=== PATIENT | female | born 1950 | race Caucasian/White ===

== ENCOUNTER → 2016-09-30 | Outpatient (CLI) | payer BC, MEDICARE ==
--- NOTE | 2016-09-30 10:44 | REP ---
LEFT BREAST MAMMOGRAM: CLINICAL HISTORY: History of breast cancer at age 55. Family history of breast cancer in sister. MLO and CC views of the left breast are performed and compared to multiple prior exams, most recent of which is 09/29/2015. Breast parenchyma is heterogeneously dense. This limits the sensitivity of the mammogram. I see no definite mass or clustered microcalcifications. IMPRESSION: ACR 2 benign. No definite mass or clustered microcalcifications in the left breast. Patient is status post right mastectomy for breast cancer. BI-RADS/ACR category 2 mammogram. Benign finding(s). Routine annual screening mammography (for women over age 40). Given the dense breast parenchyma and history of breast cancer, I would recommend MRI of the left breast to rule out occult lesion. Signed by Song Bae MD 09/30/2016 04:42 P
== END ==
LOC: M RAD 09:32
PROVIDERS: ATTEND Internal Medicine Medical Oncology
DX: Z12.31 Encounter for screening mammogram for malignant neoplasm of breast (principal); Z85.3 Personal history of malignant neoplasm of breast

== ENCOUNTER → 2016-10-26 | Outpatient (REF) | payer MEDICARE | LOC: M SFHCPLAZ 18:28 | PROVIDERS: ATTEND Dermatology | DX: D48.5 Neoplasm of uncertain behavior of skin (principal) ==

== ENCOUNTER → 2017-10-13 | Outpatient (CLI) | payer MEDICARE | LOC: M RAD 10:08 | DX: Z12.31 Encounter for screening mammogram for malignant neoplasm of breast (principal); Z85.3 Personal history of malignant neoplasm of breast; Z90.11 Acquired absence of right breast and nipple | CPT/HCPCS: 77067 ==

== ENCOUNTER → 2018-07-23 | Outpatient (REF) | payer MEDICARE, SELFPAY | LOC: M LAB REF 14:14 | PROVIDERS: ATTEND Physician Assistant | DX: R30.0 Dysuria (principal) ==

== ENCOUNTER → 2018-10-16 | Outpatient (CLI) | payer MEDICARE ==
--- NOTE | 2018-10-16 11:54 | REP ---
UNILATERAL MAMMOGRAM LEFT BREAST: HISTORY: Right breast cancer and mastectomy. FAMILY HISTORY: Mother with breast cancer at age 88 and sister with breast cancer at age 45. COMPARISON: 10/13/2017 as well as multiple other prior exams. Mammogram left breast performed in the MLO and CC projections with 3D tomosynthesis. Moderately dense heterogeneous fibroglandular tissue is seen. I see no new mass or architectural distortion. No clustered microcalcifications are seen. IMPRESSION: ACR 1 negative mammogram left breast in this patient status post right mastectomy. Suggest followup mammogram in 1 year. BIRADS 1: BI-RADS/ACR category 1 mammogram. Negative Mammogram. This mammogram was interpreted with the aid of an FDA-approved computer-aided detection system. A. Negative x-ray reports should not delay biopsy if a dominant or clinically suspicious mass is present. B. Four to eight percent of cancers are not identified by x-ray. C. Adenosis and dense breasts may obscure an underlying neoplasm. The patient states she had a clinical breast exam in 12/2017. The patient letter being requested is M1. Electronically Signed by Song Bae MD 10/16/2018 02:47 P
== END ==
LOC: M RAD 10:08
PROVIDERS: ATTEND Nurse Practitioner Family
DX: Z12.31 Encounter for screening mammogram for malignant neoplasm of breast (principal); Z85.3 Personal history of malignant neoplasm of breast; Z90.11 Acquired absence of right breast and nipple

== ENCOUNTER → 2019-06-08 | Outpatient (REF) | payer MEDICARE ==
[~2019-06-08] MED LIST: ALPR0.25 PO; AMIT25TA PO; ATEN25TA PO; ESCI10TA2 PO; OMEP-221 PO; SIMV40TA2 PO; VITA500045 PO
== END ==
LOC: M LAB REF 12:17
PROVIDERS: ATTEND Nurse Practitioner Family
DX: R30.0 Dysuria (principal)

== ENCOUNTER → 2019-08-04 | Outpatient (REF) | payer MEDICARE ==
[~2019-08-04] MED LIST changes: -SIMV40TA2 PO; +SIMV40TA20 PO
== END ==
LOC: M LAB REF 17:44
PROVIDERS: ATTEND Physician Assistant
DX: R30.0 Dysuria (principal)

== ENCOUNTER → 2019-12-11 | Outpatient (REF) | payer MEDICARE | LOC: M WUC 15:52 | PROVIDERS: ATTEND Nurse Practitioner Family | DX: R30.0 Dysuria (principal) ==

== ENCOUNTER → 2019-12-11 | Outpatient (CLI) | payer MEDICARE ==
--- NOTE | 2019-12-11 10:34 | REPMRS ---
Patient History The patient states she had a clinical breast exam in December 2018. Patient has history of cancer in the right breast at age 55. Family history of breast cancer at age 88 in mother, breast cancer at age 45 in sister, unknown cancer at age 40 in father. Took tamoxifen for 5 years. Digital Woman Screen Mammo: December 11, 2019 - Exam #: [id number] Bilateral CC and MLO view(s) were taken. Technologist: Johanny Oscar, Technologist Prior study comparison: October 16, 2018, bilateral digital mammo screening bilat, performed at [facility]. October 13, 2017, bilateral digital mammo screening bilat, performed at [facility]. September 30, 2016, bilateral digital mammo screening bilat, performed at [facility]. FINDINGS: The breast tissue is heterogeneously dense. This may lower the sensitivity of mammography. The Volpara volumetric breast density category is: C. There has been no change in the appearance of the left breast parenchyma in the interval since the prior examination. No mass, architectural distortion, or microcalcific grouping has developed. No suspicious finding. 3-D tomosynthesis shows no additional findings. Assessment: BI-RADS/ACR category 2 mammogram. Benign Findings. Recommendation Routine screening mammogram of the left breast in 1 year. This mammogram was interpreted with the aid of an FDA-approved computer-aided dectection system. Electronically Signed By: Diego Reveles MD 12/11/19 [id number]
== END ==
LOC: M WHC 09:08
PROVIDERS: ATTEND Nurse Practitioner Family
DX: Z12.31 Encounter for screening mammogram for malignant neoplasm of breast (principal); Z85.3 Personal history of malignant neoplasm of breast

== ENCOUNTER → 2020-06-03 | Outpatient (REF) | payer MEDICARE | LOC: M WUC 14:55 | PROVIDERS: ATTEND Physician Assistant | DX: R30.0 Dysuria (principal) ==

== ENCOUNTER → 2020-10-10 | Outpatient (REF) | payer MEDICARE ==
[~2020-10-10] MED LIST changes: -AMIT25TA PO; +AMIT25TA17 PO; +ESCI10TA16 PO; -ESCI10TA2 PO
== END ==
LOC: M WUC 12:25
PROVIDERS: ATTEND Physician Assistant
DX: R30.0 Dysuria (principal)

== ENCOUNTER → 2020-12-11 | Outpatient (CLI) | payer MEDICARE ==
--- NOTE | 2020-12-11 11:21 | REPMRS ---
Patient History The patient states she has not had a clinical breast exam in over a year. Family history of breast cancer at age 88 in mother, breast cancer at age 45 in sister, unknown cancer at age 40 in father. Took tamoxifen for 5 years. Patient states no breast complaints today. Patient has signed MRS History Sheet. Digital Woman Screen Mammo: December 11, 2020 - Exam #: [id number] Bilateral CC and MLO view(s) were taken. Technologist: Jami Bazan Technologist Prior study comparison: December 11, 2019, bilateral digital woman screen mammo performed at [facility] and [facility]. October 16, 2018, bilateral digital mammo screening bilat, performed at [facility]. October 13, 2017, bilateral digital mammo screening bilat, performed at [facility]. FINDINGS: The breast tissue is heterogeneously dense. This may lower the sensitivity of mammography. There has been no change in the appearance of the left breast parenchyma in the interval since the prior examination. No mass, architectural distortion, or microcalcific grouping has developed. No suspicious finding. 3-D tomosynthesis shows no additional findings. Assessment: BI-RADS/ACR category 2 mammogram. Benign Findings. Recommendation Routine screening mammogram of the left breast in 1 year. This mammogram was interpreted with the aid of an FDA-approved computer-aided dectection system. Electronically Signed By: Diego Reveles MD 12/11/20 [id number]
== END ==
LOC: M WHC 09:44
PROVIDERS: ATTEND Physician Assistant
DX: Z12.31 Encounter for screening mammogram for malignant neoplasm of breast (principal); Z85.3 Personal history of malignant neoplasm of breast; Z90.11 Acquired absence of right breast and nipple; Z80.3 Family history of malignant neoplasm of breast

== ENCOUNTER → 2021-03-23 | Outpatient (REF) | payer MEDICARE | LOC: M LAB REF 16:04 | PROVIDERS: ATTEND Physician Assistant | DX: N39.0 Urinary tract infection, site not specified (principal) ==

== ENCOUNTER → 2021-03-26 | Outpatient (CLI) | payer MEDICARE ==
--- NOTE | 2021-03-26 10:35 | DEXAMM ---
INDICATION: OTH DISRD OF BONE DENSITY AND STRUCTURE, UNSPECIFIED SITE. COMPARISON: Comparison study March 20, 2019. TECHNIQUE: Bone density was measured using dual-energy x-ray absorptionmetry (DEXA). FINDINGS: AP SPINE L1-L4 BMD 1.020 g/cm2 Young Adult T-Score -1.4 Age Matched Z-Score 0.2. LT FEMUR, TOTAL BMD 0.771 g/cm2 Young Adult T-Score -1.9 Age Matched Z-Score -0.4. LT NECK BMD 0.738 g/cm2 Young Adult T-Score -2.2 Age Matched Z-Score -0.5. RT FEMUR, TOTAL BMD 0.780 g/cm2 Young Adult T-Score -1.8 Age Matched Z-Score -0.4. RT NECK BMD 0.779 g/cm2 Young Adult T-Score -1.9 Age Matched Z-Score -0.2. IMPRESSION: There is low bone density of the spine. There is low bone density of the left hip. There is low bone density of the right hip. The density of the spine has decreased 3.7% since the initial exam on December 10, 2005. The density of the spine increased 1.3% since most recent exam on March 20, 2019. The density of the left hip has increased 3.1% since initial exam on January 11, 2007. The density of the left hip has decreased 0.6% since most recent exam on March 20, 2019. The density of the right hip has decreased 1.1% since the initial exam on December 10, 2005. The density of the right hip has decreased 1.4% since the most recent exam on March 20, 2019. FOLLOW-UP: Recommendation for the next bone density exam: 2 years. <Electronically signed by Diego Reveles > 03/26/21 [id number]
== END ==
LOC: M WHC 09:15
PROVIDERS: ATTEND Physician Assistant
DX: M85.89 Other specified disorders of bone density and structure, multiple sites (principal)

== ENCOUNTER → 2021-05-25 | Outpatient (REF) | payer MEDICARE | LOC: M LAB REF 20:29 | PROVIDERS: ATTEND Physician Assistant | DX: N39.0 Urinary tract infection, site not specified (principal) ==

== ENCOUNTER → 2021-07-02 | Outpatient (REF) | payer MEDICARE ==
[~2021-07-02] MED LIST changes: -OMEP-221 PO; +OMEP40CA5 PO
== END ==
LOC: M WUC 12:04
PROVIDERS: ATTEND Physician Assistant
DX: N39.0 Urinary tract infection, site not specified (principal)

== ENCOUNTER → 2021-12-30 | Outpatient (CLI) | payer MEDICARE | LOC: M WHC 09:53 | PROVIDERS: ATTEND Family Medicine | DX: Z12.31 Encounter for screening mammogram for malignant neoplasm of breast (principal) ==

== ENCOUNTER → 2022-04-11 | Outpatient (CLI) | payer MEDICARE | LOC: M LABSMTC 11:17 | PROVIDERS: ATTEND Anesthesiology | DX: Z01.812 Encounter for preprocedural laboratory examination (principal); Z20.822 Contact with and (suspected) exposure to COVID-19 ==

== ENCOUNTER 2022-04-14 10:47 | Day surgery (SDC) | payer MEDICARE ==
[~2022-04-14] VITALS: Ht 167.6 cm; Wt 65.8 kg
[~2022-04-14 10:47] MED LIST changes: +NS 1,000 ML IV ONE
[2022-04-14] MEDS ORDERED: TRAZ-257 PO (11:31)
[2022-04-14] MEDS ORDERED: METOPROLOL 5 MG/5 ML VIAL As Ordered ONE (12:21)
[2022-04-14] MEDS ORDERED: LIDOCAINE 2% 100MG/5ML SDV (FOR ANES.) As Ordered ONE (12:21)
[2022-04-14] MEDS ORDERED: propofoL 200 MG/20 ML VIAL As Ordered ONE (12:22)
[2022-04-14 13:05] VITALS: BP 130/60
== END 2022-04-14 13:12 | disposition home or self-care (01) ==
LOC: M OPP 10:47
PROVIDERS: ATTEND Internal Medicine Gastroenterology
DX: Z12.11 Encounter for screening for malignant neoplasm of colon (principal); K64.0 First degree hemorrhoids; Z79.02 Long term (current) use of antithrombotics/antiplatelets; Z79.899 Other long term (current) drug therapy; Z88.2 Allergy status to sulfonamides; I10 Essential (primary) hypertension; K21.9 Gastro-esophageal reflux disease without esophagitis; F41.9 Anxiety disorder, unspecified; E78.00 Pure hypercholesterolemia, unspecified; Z92.3 Personal history of irradiation; Z85.3 Personal history of malignant neoplasm of breast; Z80.3 Family history of malignant neoplasm of breast

== ENCOUNTER → 2022-07-26 | Outpatient (REF) | payer MEDICARE ==
[~2022-07-26] MED LIST changes: -NS 1,000 ML IV ONE; +TRAZ-257 PO
== END ==
LOC: M LABWUC 19:11
PROVIDERS: ATTEND Physician Assistant
DX: R30.0 Dysuria (principal)

== ENCOUNTER → 2022-11-08 | Outpatient (REF) | payer MEDICARE | LOC: M LAB REF 12:27 | PROVIDERS: ATTEND Ophthalmology | DX: H04.42 Chronic lacrimal canaliculitis (principal) ==

== ENCOUNTER → 2023-01-04 | Outpatient (REF) | payer MEDICARE | LOC: M LAB REF 16:15 | PROVIDERS: ATTEND Ophthalmology | DX: H04.562 Stenosis of left lacrimal punctum (principal) ==

== ENCOUNTER → 2023-01-05 | Outpatient (CLI) | payer MEDICARE | LOC: M WHC 09:44 | PROVIDERS: ATTEND Family Medicine | DX: Z12.31 Encounter for screening mammogram for malignant neoplasm of breast (principal); Z85.3 Personal history of malignant neoplasm of breast; Z90.11 Acquired absence of right breast and nipple; Z80.3 Family history of malignant neoplasm of breast ==

== ENCOUNTER → 2023-02-10 | Outpatient (REF) | payer MEDICARE | LOC: M LAB REF 13:13 | PROVIDERS: ATTEND Ophthalmology | DX: H04.339 Acute lacrimal canaliculitis of unspecified lacrimal passage (principal) ==

== ENCOUNTER → 2023-04-04 | Outpatient (CLI) | payer MEDICARE ==
[~2023-04-04] MED LIST changes: -AMIT25TA17 PO; +AMIT25TA19 PO
== END ==
LOC: M WHC 13:26
PROVIDERS: ATTEND Family Medicine
DX: M81.0 Age-related osteoporosis without current pathological fracture (principal)

== ENCOUNTER → 2023-07-06 | Outpatient (REF) | payer MEDICARE | LOC: M LAB REF 17:01 | PROVIDERS: ATTEND Family Medicine | DX: H10.022 Other mucopurulent conjunctivitis, left eye (principal) ==

== ENCOUNTER → 2024-01-24 | Outpatient (CLI) | payer MEDICARE | LOC: M WHC 08:43 | PROVIDERS: ATTEND Family Medicine | DX: Z12.31 Encounter for screening mammogram for malignant neoplasm of breast (principal); Z13.820 Encounter for screening for osteoporosis ==

== ENCOUNTER → 2024-05-09 | Outpatient (CLI) | payer MEDICARE ==
[2024-05-09 14:46] LABS: BASO % 0.6 % (0.0-1.0); EOS # 0.3 10^3/uL (0.0-0.5); EOS % 4.6 % (0.0-3.0); HEMATOCRIT 39.4 % (36.0-47.0); HEMOGLOBIN 12.6 g/dl (12.0-15.5); LYMPH # 1.8 10^3/uL (1.5-5.0); LYMPH % 28.1 % (24.0-44.0); MEAN CORPUSCULAR HEMOGLOBIN 30.2 pg (27.0-33.0); MEAN CORPUSCULAR VOLUME 94.5 fl (80.0-96.0); MONO # 0.5 10^3/uL (0.0-0.8); MONO % 8.2 % (2.0-8.0); NEUTROPHILS # 3.7 10^3/uL (1.5-8.5); NEUTROPHILS % 58.2 % (36.0-66.0); PLATELET COUNT, AUTOMATED 281 10^3/uL (150-450); RED BLOOD COUNT 4.17 10^6/uL (4.00-5.40); WHITE BLOOD COUNT 6.3 10^3/uL (4.0-10.0)
[2024-05-09 15:03] LABS: HEMOGLOBIN A1c 5.4 % (4.0-6.0)
[2024-05-09 15:18] LABS: ALBUMIN 3.8 G/DL (3.2-5.2); ALKALINE PHOSPHATASE 66 U/L (46-116); ALT/SGPT 13 U/L (7.0-40); AST/SGOT 9 U/L (<34); BILIRUBIN,TOTAL 0.4 MG/DL (0.3-1.2); BLOOD UREA NITROGEN 19 MG/DL (9-23); CALCIUM LEVEL 8.8 MG/DL (8.3-10.6); CARBON DIOXIDE LEVEL 31 MMOL/L (20-31); CHLORIDE LEVEL 106 MMOL/L (98-107); CHOLESTEROL LEVEL 153 MG/DL (<200); CHOLESTEROL RISK RATIO 4.13 (<5); CREATININE FOR GFR 0.73 MG/DL (0.55-1.30); GLOMERULAR FILTRATION RATE > 60.0 (>39); GLUCOSE, FASTING 101 MG/DL (74-106); LDL CHOLESTEROL 72.2 MG/DL (<100); POTASSIUM SERUM 4.4 MMOL/L (3.5-5.1); SODIUM LEVEL 140 MMOL/L (136-145); TOTAL PROTEIN 6.5 G/DL (5.7-8.2); TRIGLYCERIDES LEVEL 219 MG/DL (<150)
[2024-05-09 15:21] LABS: THYROID STIMULATING HORMONE 3.191 uIU/ML (0.55-4.78)
[2024-05-09 15:22] LABS: TOTAL 25(OH) VITAMIN D 52.8 NG/ML (20.0-100.0)
== END ==
LOC: M WUC 09:38
PROVIDERS: ATTEND Physician Assistant
DX: R73.01 Impaired fasting glucose (principal); E55.9 Vitamin D deficiency, unspecified; E78.5 Hyperlipidemia, unspecified; G47.00 Insomnia, unspecified

== ENCOUNTER → 2024-10-23 | Outpatient (REF) | payer MEDICARE ==
[2024-10-23 14:45] LABS: BASO % 0.6 % (0.0-1.0); EOS # 0.3 10^3/uL (0.0-0.5); EOS % 4.6 % (0.0-3.0); HEMATOCRIT 39.8 % (36.0-47.0); HEMOGLOBIN 12.7 g/dl (12.0-15.5); LYMPH # 1.8 10^3/uL (1.5-5.0); LYMPH % 24.8 % (24.0-44.0); MEAN CORPUSCULAR HEMOGLOBIN 30.3 pg (27.0-33.0); MEAN CORPUSCULAR HGB CONC 31.9 g/dl (32.0-36.5); MONO # 0.6 10^3/uL (0.0-0.8); MONO % 8.6 % (2.0-8.0); NEUTROPHILS # 4.4 10^3/uL (1.5-8.5); NEUTROPHILS % 61.1 % (36.0-66.0); PLATELET COUNT, AUTOMATED 281 10^3/uL (150-450); RED BLOOD COUNT 4.19 10^6/uL (4.00-5.40); WHITE BLOOD COUNT 7.2 10^3/uL (4.0-10.0)
[2024-10-23 15:07] LABS: ALBUMIN 3.7 G/DL (3.2-5.2); ALKALINE PHOSPHATASE 59 U/L (35-104); ALT/SGPT 15 U/L (7.0-40); AST/SGOT 14 U/L (<34); BILIRUBIN,TOTAL 0.4 MG/DL (0.3-1.2); BLOOD UREA NITROGEN 16 MG/DL (9-23); CALCIUM LEVEL 9.1 MG/DL (8.3-10.6); CARBON DIOXIDE LEVEL 31 MMOL/L (20-31); CHLORIDE LEVEL 106 MMOL/L (98-107); CHOLESTEROL LEVEL 117 MG/DL (<200); CHOLESTEROL RISK RATIO 3.11 (<5); CREATININE FOR GFR 0.78 MG/DL (0.55-1.30); GLOMERULAR FILTRATION RATE > 60.0 (>39); GLUCOSE, FASTING 102 MG/DL (74-106); HDL CHOLESTEROL 37.6 MG/DL (>40); NON-HDL-C 79.4 MG/DL; POTASSIUM SERUM 4.5 MMOL/L (3.5-5.1); SODIUM LEVEL 142 MMOL/L (136-145); TOTAL PROTEIN 6.5 G/DL (5.7-8.2); TRIGLYCERIDES LEVEL 132 MG/DL (<150)
[2024-10-23 15:08] LABS: FREE T4 0.99 NG/DL (0.89-1.76); HEMOGLOBIN A1c 5.1 % (4.0-6.0); TOTAL 25(OH) VITAMIN D 48.3 NG/ML (20.0-100.0)
== END ==
LOC: M LABWUC 12:24
PROVIDERS: ATTEND Family Medicine
DX: E55.9 Vitamin D deficiency, unspecified (principal); R73.01 Impaired fasting glucose; E78.5 Hyperlipidemia, unspecified

== ENCOUNTER → 2025-01-30 | Outpatient (CLI) | payer MEDICARE | LOC: M WHC 12:24 | PROVIDERS: ATTEND Family Medicine | DX: Z12.31 Encounter for screening mammogram for malignant neoplasm of breast (principal); Z90.11 Acquired absence of right breast and nipple; M81.0 Age-related osteoporosis without current pathological fracture ==

== ENCOUNTER → 2025-05-09 | Outpatient (CLI) | payer MEDICARE ==
[2025-05-09 12:54] LABS: FREE T4 0.94 NG/DL (0.89-1.76)
[2025-05-09 12:55] LABS: ALT/SGPT 25.0 U/L (7.0-40); AST/SGOT 28.0 U/L (<34); BASO # 0.0 10^3/uL (0.0-0.2); BASO % 0.8 % (0.0-1.0); CALCIUM LEVEL 9.2 MG/DL (8.3-10.6); CARBON DIOXIDE LEVEL 29.0 MMOL/L (20-31); CHLORIDE LEVEL 102.0 MMOL/L (98-107); CHOLESTEROL LEVEL 119.0 MG/DL (<200); CHOLESTEROL RISK RATIO 3.41 (<5); CREATININE FOR GFR 0.79 MG/DL (0.55-1.30); EOS # 0.2 10^3/uL (0.0-0.5); EOS % 5.3 % (0.0-3.0); GLOMERULAR FILTRATION RATE 78.9 (>39); LDL CHOLESTEROL 51.0 MG/DL (<100); LYMPH # 1.2 10^3/uL (1.5-5.0); LYMPH % 29.2 % (24.0-44.0); MONO # 0.6 10^3/uL (0.0-0.8); MONO % 15.0 % (2.0-8.0); NEUTROPHILS # 2.0 10^3/uL (1.5-8.5); NEUTROPHILS % 49.4 % (36.0-66.0); NON-HDL-C 84.2 MG/DL; PLATELET COUNT, AUTOMATED 231 10^3/uL (150-450); POTASSIUM SERUM 4.7 MMOL/L (3.5-5.1); SODIUM LEVEL 142.0 MMOL/L (136-145); TRIGLYCERIDES LEVEL 166.0 MG/DL (<150)
[2025-05-09 14:11] LABS: ESTIMATED AVERAGE GLUCOSE 114.0 MG/DL (60-110)
== END ==
LOC: M WUC 08:25
PROVIDERS: ATTEND Family Medicine
DX: R73.01 Impaired fasting glucose (principal); E78.5 Hyperlipidemia, unspecified

== ENCOUNTER → 2025-07-12 | Outpatient (CLI) | payer MEDICARE ==
[2025-07-12 13:25] LABS: BASO # 0.0 10^3/uL (0.0-0.2); BASO % 0.4 % (0.0-1.0); EOS # 0.3 10^3/uL (0.0-0.5); EOS % 3.7 % (0.0-3.0); LYMPH # 1.8 10^3/uL (1.5-5.0); LYMPH % 25.6 % (24.0-44.0); MONO # 0.6 10^3/uL (0.0-0.8); MONO % 8.3 % (2.0-8.0); NEUTROPHILS # 4.3 10^3/uL (1.5-8.5); NEUTROPHILS % 61.7 % (36.0-66.0); PLATELET COUNT, AUTOMATED 290 10^3/uL (150-450)
[2025-07-12 13:44] LABS: LDH LACTATE DEHYDROGENASE 158.0 U/L (120-246)
[2025-07-12 13:46] LABS: ALT/SGPT 15.0 U/L (7.0-40); AST/SGOT 17.0 U/L (<34); CALCIUM LEVEL 8.7 MG/DL (8.3-10.6); CARBON DIOXIDE LEVEL 28.0 MMOL/L (20-31); CHLORIDE LEVEL 101.0 MMOL/L (98-107); CREATININE FOR GFR 0.74 MG/DL (0.55-1.30); GLOMERULAR FILTRATION RATE 85.4 (>39); POTASSIUM SERUM 4.4 MMOL/L (3.5-5.1); SODIUM LEVEL 138.0 MMOL/L (136-145)
== END ==
LOC: M WUC 10:31
PROVIDERS: ATTEND Physician Assistant
DX: R22.2 Localized swelling, mass and lump, trunk (principal); Z85.3 Personal history of malignant neoplasm of breast

== ENCOUNTER → 2025-07-16 | Outpatient (CLI) | payer MEDICARE ==
[~2025-07-16] MED LIST changes: +ISOVUE-370 76% 100 ML VIAL ONE
== END ==
LOC: M PLAIMG 08:58
PROVIDERS: ATTEND Physician Assistant
DX: R91.1 Solitary pulmonary nodule (principal); R22.2 Localized swelling, mass and lump, trunk
CPT/HCPCS: 71260; 74177; Q9967